=== PATIENT | female | born 1995 | race Caucasian/White ===

== ENCOUNTER 2024-02-04 12:32 | Inpatient (IN) | payer BC ==
[~2024-02-04] VITALS: Ht 172.7 cm; Wt 83.5 kg
[2024-02-10] MEDS ORDERED: LACTATED RINGER'S 1,000 ML IV SCH ×3 (05:00→12:42)
[2024-02-10] MEDS ORDERED: CEFAZOLIN SODIUM 2 GM/20 ML SYR IV SCH (05:30)
[2024-02-10] MEDS ORDERED: LACTATED RINGER'S 2,000 ML IV PRN (05:30)
[2024-02-10 06:15] LABS: HEMATOCRIT 37.5 % (35.0-50.0); HEMOGLOBIN 12.8 g/dL (12.0-18.0); MCH 30.5 (27-36); MCHC 34.1 g/dl (30-36); MCV 89.4 fl (81-99); RBC 4.19 M/ul (4.3-5.7); RDW 14.7 (10.5-15.0)
[2024-02-10] MEDS ORDERED: SOD+POT BICARB/CITRIC ACID 2 EA TABLET.EFF PO ONE (06:30)
[2024-02-10 06:46] LABS: ABO O; ANTIBODY SCREEN NEGATIVE; RH POSITIVE
[2024-02-10] MEDS ORDERED: IBLOOD GLUCOSE TEST STRIP 1 EA TEST VI PRN ×2 (07:00→11:45)
[2024-02-10] MEDS ORDERED: LIDOCAINE HCL 1% 5 ML SDV INJ ONE (07:00)
[2024-02-10 09:11] LABS: AMPHETAMINES, URINE NEGATIVE (NEGATIVE); BARBITURATES, URINE NEGATIVE (NEGATIVE); BENZODIAZEPINE, URINE NEGATIVE (NEGATIVE); BUPRENORPHINE, URINE NEGATIVE (NEGATIVE); CANNABINOID, URINE NEGATIVE (NEGATIVE); COCAINE, URINE NEGATIVE (NEGATIVE); ECSTASY, URINE NEGATIVE (NEGATIVE); FENTANYL, URINE NEGATIVE (NEGATIVE); METHADONE, URINE NEGATIVE (NEGATIVE); OPIATES, URINE NEGATIVE (NEGATIVE); OXYCODONE, URINE NEGATIVE (NEGATIVE); PHENCYCLIDINE, URINE NEGATIVE (NEGATIVE)
[2024-02-10] MEDS ORDERED: MORPHINE SULFATE 1 MG/ML VIAL ONE (10:32)
[2024-02-10] MEDS ORDERED: BUPIVACAINE 0.75% IN DEXTROSE 2 ML AMP ONE (10:33)
[2024-02-10] MEDS ORDERED: LIDOCAINE HCL 2% 5 ML SDV ONE ×2 (10:33→11:46)
[2024-02-10] MEDS ORDERED: OXYTOCIN 10 UNITS/ML VIAL ONE ×2 (10:33→11:21)
[2024-02-10] MEDS ORDERED: ondansetron HCL 4 MG/2 ML VIAL ONE (10:33)
[2024-02-10] MEDS ORDERED: DEXAMETHASONE SOD PHOS 4 MG/ML VIAL ONE ×2 (10:33→11:21)
[2024-02-10] MEDS ORDERED: fentaNYL citrate 100 MCG/2 ML VIAL ONE (10:38)
[2024-02-10] MEDS ORDERED: Ropivacaine HCl 0.5% 30 ML VIAL ONE (11:21)
[2024-02-10] MEDS ORDERED: PHENYLEPHRINE HCL 10 MG/ML VIAL ONE (11:21)
[2024-02-10] MEDS ORDERED: SODIUM CHLORIDE 0.9% 20 ML IV ONE (11:21)
[2024-02-10] MEDS ORDERED: dexmedeTOMIDine HCl 200 MCG/2 ML VIAL ONE (11:21)
[2024-02-10] MEDS ORDERED: NALOXONE HCL 0.4 MG SYR IV PRN ×2 (11:45)
[2024-02-10] MEDS ORDERED: fentaNYL citrate 50 MCG/ML SDV IV PRN (11:45)
[2024-02-10] MEDS ORDERED: HYDROmorphone HCL 1 MG/ML SYR IV PRN (11:45)
[2024-02-10] MEDS ORDERED: KETOROLAC TROMETHAMINE 30 MG/ML VIAL IV PRN ×2 (11:45)
[2024-02-10] MEDS ORDERED: ondansetron HCL 4 MG/2 ML VIAL IV PRN ×3 (11:45→12:45)
[2024-02-10] MEDS ORDERED: diphenhydrAMINE HCL 50 MG/ML VIAL IV PRN ×2 (11:45)
[2024-02-10] MEDS ORDERED: diphenhydrAMINE HCL 25 MG CAP PO PRN (11:45)
[2024-02-10] MEDS ORDERED: OXYTOCIN/0.9 % SODIUM CHLORIDE 500 ML IV SCH (12:45)
[2024-02-10] MEDS ORDERED: PROMETHAZINE HCL 25 MG TAB PO PRN (12:45)
[2024-02-10] MEDS ORDERED: HYDROCODONE/ACETA 5/325 TAB PO PRN (12:45)
[2024-02-10] MEDS ORDERED: PROCHLORPERAZINE EDISYLATE 10 MG/2 ML VIAL IV PRN (12:45)
[2024-02-10] MEDS ORDERED: PROMETHAZINE HCL 25 MG SUPP PR PRN (12:45)
[2024-02-10] MEDS ORDERED: bisacodyL 10 MG SUPP PR PRN (12:45)
[2024-02-10] MEDS ORDERED: METOCLOPRAMIDE HCL 10 MG/2 ML SDV IV PRN (12:45)
[2024-02-10] MEDS ORDERED: OXYCODONE/APAP 5/325 TAB PO PRN (12:45)
[2024-02-10] MEDS ORDERED: OXYCODONE HCL 5 MG TAB PO PRN (12:45)
[2024-02-10 12:48] VITALS: BP 111/59
--- NOTE | 2024-02-10 13:01 | NUR ---
02/10/24 1301 Katie Lamb 1203 PT ARRIVED IN PACU WIDE AWAKE WITH NO C/O'S, EXCEPT DURING FUNDAL MASSAGE. IV PATENT IN L HAND. 1210 PT HOLDING BABY WITH AND FBC RN AT BEDSIDE. 1220 MOM BREASFEEDING BABY WITH HELP FROM RN. NO C/O'S. 1236 REPORT GIVEN TO RN. BED PLUGGED IN.
[2024-02-10] MEDS ORDERED: KETOROLAC TROMETHAMINE 30 MG/ML VIAL IV SCH (14:00)
[2024-02-10] MEDS ORDERED: SIMETHICONE 125 MG TABLET CHEWABLE PO SCH (16:00)
[2024-02-10] MEDS ORDERED: ENOXAPARIN SODIUM 40 MG/0.4 ML SYR SUB-Q SCH (20:00)
[2024-02-10] MEDS ORDERED: SENNOSIDES/DOCUSATE 1 EA TAB PO SCH (21:00)
[2024-02-11] MEDS ORDERED: IBUPROFEN 600 MG TAB PO SCH (02:00)
[2024-02-11 06:14] LABS: HEMATOCRIT 33.1 % (35.0-50.0); HEMOGLOBIN 11.5 g/dL (12.0-18.0); MCH 30.9 (27-36); MCHC 34.7 g/dl (30-36); MCV 88.8 fl (81-99); RBC 3.73 M/ul (4.3-5.7); RDW 14.5 (10.5-15.0)
[2024-02-11] MEDS ORDERED: SOD+POT BICARB/CITRIC ACID 2 EA TABLET.EFF PO SCH (07:00)
[2024-02-11] MEDS ORDERED: ACETAMINOPHEN 325 MG TAB PO PRN (13:15)
== END 2024-02-12 10:30 | disposition home or self-care (01) | DRG 788 ==
LOC: FBC 02-10 05:30
PROVIDERS: ADMIT Obstetrics & Gynecology; ATTEND Obstetrics & Gynecology
PROC: 10D00Z1 Extraction of Products of Conception, Low, Open Approach (ICD-10-PCS; principal; 2024-02-10 10:00)
DX: O32.1XX0 Maternal care for breech presentation, not applicable or unspecified (principal); Z3A.39 39 weeks gestation of pregnancy; Z37.0 Single live birth; O69.81X0 Labor and delivery complicated by cord around neck, without compression, not applicable or unspecified; J45.909 Unspecified asthma, uncomplicated; O99.52 Diseases of the respiratory system complicating childbirth
CPT/HCPCS: 01961; 36415; 76942; 80307; 85027; 86850; 86900; 86901; A9270; J0690; J1100; J1650; J1885; J2003; J2274; J2371; J2405; J2590; J2795; J3010; J7121